=== PATIENT | male | born 1960 | race Caucasian/White ===

== ENCOUNTER → 2017-08-01 14:03 | Outpatient (CLI) | payer BC, SELFPAY ==
--- NOTE | 2017-08-01 14:08 | XR_ITS ---
XR chest 2V HISTORY: ITS.REASON: HTN ORDERING PHYSICIAN: LOPEZ Aguilar PATIENT AGE: 56 years COMPARISON: 11/22/2015 FINDINGS: The cardiomediastinal silhouette and pulmonary vascularity are within normal limits. The lungs are clear without infiltrates, suspicious nodules, or pleural effusions. No acute bony abnormalities. IMPRESSION: Negative chest, no acute finding
== END ==
PROVIDERS: PCP Family Medicine; Visit Provider Physician Assistant
DX: I10 Essential (primary) hypertension (principal)
CPT/HCPCS: 71046; 93005

== ENCOUNTER → 2017-10-24 09:04 | Outpatient (CLI) | payer BC, SELFPAY ==
--- NOTE | 2017-10-24 09:31 | MR_ITS ---
MR head/brain wo/w con Ordering Physician: Arlet Purcell MD Patient Age: 56 years: Male HISTORY: ITS.REASON: DIPLOPIA Diplopia. Double vision 5 months. No history of brain procedures. TECHNIQUE: Precontrast Multiplanar FLAIR, T1, T2 weighted images along with axial diffusion/ADC imaging performed on 1.5 T. Siemens, MRI. Postcontrast imaging [id number] ProHance T1-weighted images axial & coronal plane performed COMPARISON : FINDINGS Normal anatomy.No mass effect No territorial infarct. No evidence of recent infarct or ischemia on diffusion images.. Cranial cervical junction is normal. Sella is normal. Ventricles appear normal size. Slightly generous perivascular space/CSF space at the floor of right basal ganglia. Other tiny perivascular spaces at inferior basal ganglia bilaterally insignificant. 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 No enhancement here. This measures up to 10 mm AP x 11 mm wide. 8 mm height. 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 Posterior fossa unremarkable. IACs symmetric cranial nerve VII and VIII survey unremarkable . Region of igiugig Blackmon grossly unremarkable on this survey study. No suprasellar mass region of optic chiasm satisfactory The today's survey images of the orbits shows symmetrical appearance to the globes. No retrobulbar pathology. The extraocular muscles appear normal size.. Paranasal Sinus Disease Evident: A prominent diffuse mucosal thickening throughout Ethmoid Air bilaterally cells reflecting ethmoid sinusitis. Diffuse homogeneous moderate Enhancement with mucosal thickening at ethmoid air cells. LEFT maxillary sinus with generous mucosal thickening at floor measuring over 15 mm.. 2 focal areas measuring up to 14 mm is seen along the medial wall towards floor. Slight varying signal of these ovoid polypoid areas.... May reflect focal polypoid qMucosal thickening with some low signal inspissated material centrally, vs some variations of a retention cyst.. No significant enhancement post contrast Mild mucosal thickening is seen throughout the RIGHT maxillary sinus. Most evident towards the floor. . Sphenoid sinus. Trace mucosal thickening floor of sphenoid sinus most evident to the right. Frontal sinus. Trace mucosal thickening inferiorly Engorgement nasal turbinates bilaterally right greater than left with slight undulation of the nasal septum IMPRESSION:--------- 1.. Regarding visual symptoms: Orbits, suprasellar region & optic pathways unremarkable. Occipital lobes unremarkable 2.. Notable Paranasal sinus disease: -... Prominent bilateral Ethmoid Sinusitis is most pronounced feature - . Moderate mucosal thickening floor left maxillary sinus,. Two ovoid polypoid areas at medial wall & floor of left maxillary sinus- likely reflecting polypoid areas mucosal thickening or retention cyst variants 3.. Small incidental 11 mm slight eccentric pineal cyst is noted just to left of midline . No enhancement but may benefit from follow-up CT in 6 months given its eccentric character & upper normal size 4. Suggest Follow-Up CT Sinuses in 2-3 months after initial treatment of sinusitis Head CT w/ contrast at that time verify stable appearance of asymmetric pineal cyst may be of benefit as well
[2017-10-24 09:34] LABS: Blood Urea Nitrogen 16 mg/dL (7-18); Creatinine,Serum 1.23 mg/dL (0.70-1.30); Estimated Glomerular Filt Rate 61 ml/min (>60); GFR (African American) 74 ML/MIN (>60)
--- NOTE | 2017-10-24 10:14 | HMH.ITSHM ---
AMLODIPINE OMEPRAZOLE LEUSIN
== END ==
PROVIDERS: Family Provider Family Medicine; PCP Family Medicine; Visit Provider Family Medicine
DX: H53.2 Diplopia (principal)
CPT/HCPCS: 36415; 70553; 82565; 84520; A9576

== ENCOUNTER → 2017-11-14 14:20 | Outpatient (POV) | payer BC, SELFPAY | PROVIDERS: Family Provider Family Medicine; PCP Family Medicine | DX: Z00.00 Encounter for general adult medical examination without abnormal findings (principal) ==

== ENCOUNTER → 2018-07-24 11:41 | Outpatient (CLI) | payer BC, SELFPAY ==
--- NOTE | 2018-07-24 11:50 | XR_ITS ---
EXAM: XR lumbar spine min 4V HISTORY: ITS.REASON: PIRIFORMIS SYNDROME OF RT SIDE ORDERING PHYSICIAN: LOPEZ Aguilar PATIENT AGE: 57 years COMPARISON: None FINDINGS: There are hypertrophic changes along the superior aspect of the SI joint on the left. There is mild adjacent disc disease at L3-L4 L4-L5 and L5-S1. Mild degenerative disc disease also noted at T12-L1 and L1-L2. No fracture or dislocation. No lytic or blastic change. IMPRESSION: Degenerative changes, no acute finding
== END ==
PROVIDERS: PCP Physician Assistant; Visit Provider Physician Assistant
DX: G57.01 Lesion of sciatic nerve, right lower limb (principal)
CPT/HCPCS: 72110

== ENCOUNTER → 2018-07-30 07:41 | Outpatient (CLI) | payer BC, SELFPAY ==
--- NOTE | 2018-07-30 07:47 | MR_ITS ---
MR lumbar spine wo con, MR 3-d myelogram/MRCP HISTORY: RT hip and leg pain and tingling. X2WKS. . ITS.REASON: PIRIFORMIS SYNDROME OF RIGHT SIDE ORDERING PHYSICIAN: LOPEZ Aguilar PATIENT AGE: 57 years Comparison: X-RAY 07-24-18. TECHNIQUE: Standard multiplanar multiecho sequences are performed without contrast. 3-D MIP and myelographic images are also rendered and reviewed FINDINGS: There is normal alignment. The spinal cord ends at the T12-L1 level. T11-T12 and T12-L1 shows mild degenerative disc disease. L1-L2: Minimal degenerative disc disease. L2-L3: Unremarkable. L3-L4: Minimal bulging disc L4-L5: Facet and ligamentum flavum hypertrophy with minimal bulging disc and mild bilateral foraminal narrowing slightly greater on the left. L5-S1: There appears to been a prior laminectomy on the right at L5-S1. There is a lobular slightly hypointense T1 and T2 abnormality in the right lateral recess measuring 9 x 9 mm. This may represent a recurrent disc herniation or an area of epidural fibrosis. Repeat exam with contrast is suggested. This is impinging upon the right S1 nerve root. There is degenerative disc disease at L5-S1 with slight increase in T2 signal of the disc. IMPRESSION: 1. 9 mm hypointense T1 and T2 lobular lesion is present in the right lateral recess at L5-S1 contiguous with the disc and may represent a disc herniation versus an area of epidural fibrosis. Suggest repeat MRI with contrast to differentiate between the 2 entities. 2. Degenerative disc disease at L5-S1 3. Lumbar spondylosis with degenerative disc disease bulging disc and facet ligamentum flavum hypertrophy. Please above description at each level.
== END ==
PROVIDERS: PCP Physician Assistant; Visit Provider Physician Assistant
DX: G57.01 Lesion of sciatic nerve, right lower limb (principal)
CPT/HCPCS: 72148; 76376

== ENCOUNTER → 2018-08-07 11:45 | Outpatient (CLI) | payer BC, SELFPAY ==
--- NOTE | 2018-08-07 11:59 | MR_ITS ---
MR lumbar spine wo/w con HISTORY: Abnormal MRI of 07/30/2018 showing a disc herniation versus epidural fibrosis on the right at L5-S1. Repeat imaging performed without and with contrast LBP, RT leg pain, numbness and tingling. Prior back surgery in 1989. ITS.REASON: PIRIFORMIS SYNDROME OF RIGHT SIDE, ABNORMAL MRI, LUMBAR SPIN ORDERING PHYSICIAN: LOPEZ Aguilar PATIENT AGE: 57 years Comparison: None TECHNIQUE: Standard multiplanar multiecho sequences are performed without and with contrast. FINDINGS: Is normal alignment. There is been no change in the degenerative changes which were previously described in the lower thoracic and upper lumbar spine. No enhancing lesions are evident in the lower thoracic and upper and mid lumbar spine. Mild bulging disc noted at L3-L4 and L4-L5 with facet and ligamentum hypertrophy at L4-5 along with bilateral lateral recess and foraminal narrowing. L5-S1: Postsurgical changes from prior laminectomy on the right with degenerative disc disease and bulging disc which is eccentric toward the right. The area of hypointensity in the right lateral recess region and foraminal area does show some contrast enhancement around a mildly prominent S1 nerve root and is consistent with epidural fibrosis and not a disc herniation. IMPRESSION: 1. Right-sided epidural fibrosis at L5-S1 surrounding a mildly prominent S1 nerve root could be due to underlying inflammation of the nerve root.. There is some right lateral recess and foraminal narrowing from bulging disc and minimal endplate hypertrophic change but no evidence of residual or recurrent disc herniation. 2. Other areas of degenerative change and bulging discs as previously described IMPRESSION:
[2018-08-07 12:09] LABS: Blood Urea Nitrogen 19 mg/dL (7-18); Creatinine,Serum 1.06 mg/dL (0.70-1.30); Estimated Glomerular Filt Rate 72 ml/min (>60); GFR (African American) 87 ML/MIN (>60)
== END ==
PROVIDERS: Visit Provider Physician Assistant
DX: G57.01 Lesion of sciatic nerve, right lower limb (principal); R93.7 Abnormal findings on diagnostic imaging of other parts of musculoskeletal system
CPT/HCPCS: 36415; 72158; 82565; 84520; A9576

== ENCOUNTER → 2019-10-23 09:51 | Outpatient (CLI) | payer BC, SELFPAY ==
--- NOTE | 2019-10-23 09:58 | XR_ITS ---
PROCEDURE: XR FOOT WT BEARING RT 3V CLINICAL INDICATION: pain COMPARISON: No exams were available for comparison FINDINGS: No fracture or dislocation. No lytic or blastic change. There is normal mineralization. The joint spaces are well-preserved. No significant degenerative/arthritic changes. No erosive changes evident. Other findings:There is a bipartite type 1 os navicularis. There is a prominent os trigonum. Small calcaneal spur is noted.. Flexion is present involving all the toes. IMPRESSION: Nonacute findings as described Dictated by: Dae Hidalgo MD 10/23/2019 16:23 Dae Hidalgo MD in [place] 10/23/2019 16:23
--- NOTE | 2019-10-23 09:58 | XR_ITS ---
PROCEDURE: XR FOOT WT BEARING LT 3V CLINICAL INDICATION: pain COMPARISON: No exams were available for comparison FINDINGS: There is an old ununited fracture at the base of the 5th metatarsal with separation of the fracture fragments 4-5 mm. No acute fracture or dislocation is evident. There is mild pes planus. The joint spaces are well-preserved. No significant degenerative/arthritic changes. No erosive changes evident. Other findings:There is a mildly prominent posterior talar process as a normal variant. IMPRESSION: Old ununited fracture at the base of the 5th metatarsal with mild separation of the fracture fragments. Mild pes planus Dictated by: Dae Hidalgo MD 10/23/2019 14:52 Dae Hidalgo MD in [place] 10/23/2019 14:52
== END ==
PROVIDERS: PCP Family Medicine; Visit Provider Podiatrist
DX: M79.673 Pain in unspecified foot (principal)
CPT/HCPCS: 73630

== ENCOUNTER → 2020-02-14 10:33 | Outpatient (CLI) | payer BC, SELFPAY ==
[2020-02-14 11:57] LABS: Basophils # 0.1 K/mm3 (0-0.2); Basophils % 1.1 % (0.1-2.0); Eosinophils # 0.1 K/mm3 (0.0-0.4); Eosinophils % 1.8 % (0.1-12.0); Hematocrit 40.4 % (42.0-52.0); Hemoglobin 13.9 g/dL (14.1-18.0); Lymphocytes # 1.1 K/mm3 (0.7-4.5); Lymphocytes % 18.1 % (10-50); Mean Corpuscular HGB Conc 34.4 g/dL (31.8-35.4); Mean Corpuscular Hemoglobin 30.5 pg (27.0-31.2); Mean Corpuscular Volume 88.7 fl (80-94); Mean Platelet Volume 11.2 fl (7.4-10.4); Monocytes # 0.5 K/mm3 (0.1-1.0); Monocytes % 7.4 % (1.7-9.3); Neutrophils # 4.4 K/mm3 (1.8-7.8); Neutrophils % 71.7 % (37.0-80.0); Platelet Count 109 K/mm3 (142-424); Red Blood Count 4.56 M/mm3 (4.60-6.20); Red Cell Distribution Width 13.9 % (11.5-17.5); White Blood Count 6.1 K/mm3 (4.8-10.8)
[2020-02-15 09:08] LABS: Covid-19 Nasal PCR Sendout UK Not Detected
== END ==
PROVIDERS: PCP Family Medicine; Visit Provider Family Medicine
DX: Z03.818 Encounter for observation for suspected exposure to other biological agents ruled out (principal)
CPT/HCPCS: 36415; 85025; U0003

== ENCOUNTER → 2020-04-13 10:24 | Outpatient (CLI) | payer BC, SELFPAY ==
[2020-04-13 10:52] LABS: Basophils % 0.5 % (0.1-2.0); Eosinophils # 0.1 K/mm3 (0.0-0.4); Eosinophils % 1.3 % (0.1-12.0); Hematocrit 43.5 % (42.0-52.0); Lymphocytes # 1.4 K/mm3 (0.7-4.5); Lymphocytes % 18.8 % (10-50); Mean Corpuscular HGB Conc 32.1 g/dL (31.8-35.4); Mean Corpuscular Hemoglobin 28.1 pg (27.0-31.2); Mean Corpuscular Volume 87.6 fl (80-94); Mean Platelet Volume 9.9 fl (7.4-10.4); Monocytes # 0.5 K/mm3 (0.1-1.0); Monocytes % 6.6 % (1.7-9.3); Neutrophils # 5.6 K/mm3 (1.8-7.8); Neutrophils % 72.9 % (37.0-80.0); Platelet Count 191 K/mm3 (142-424); Red Blood Count 4.97 M/mm3 (4.60-6.20); White Blood Count 7.6 K/mm3 (4.8-10.8)
== END ==
PROVIDERS: PCP Family Medicine; Visit Provider Family Medicine
DX: Z20.822 Contact with and (suspected) exposure to COVID-19 (principal)
CPT/HCPCS: 36415; 85025; 87275; 87276; U0003

== ENCOUNTER → 2020-07-06 13:29 | Outpatient (CLI) | payer BC, SELFPAY ==
--- NOTE | 2020-07-06 13:33 | XR_ITS ---
PROCEDURE: XR CHEST 2V CLINICAL HISTORY: SOB COMPARISON: CR CXR CHEST(2 VIEWS-NOT PORTABLE) from 05/23/2013 CR CXR CHEST(2 VIEWS-NOT PORTABLE) from 11/22/2015 DX CXR2V XR chest 2V from 08/01/2017 FINDINGS: The cardiomediastinal silhouette and pulmonary vascularity are within normal limits. The lungs are clear without infiltrates, suspicious nodules, or pleural effusions. No acute bony abnormalities. IMPRESSION: No acute findings. Dictated by: Dae Hidalgo MD 07/06/2020 14:43 Dae Hidalgo MD in [place] 07/06/2020 14:43
== END ==
PROVIDERS: PCP Family Medicine; Visit Provider Family Medicine
DX: R06.02 Shortness of breath (principal)
CPT/HCPCS: 71046

== ENCOUNTER → 2020-07-15 06:14 | Outpatient (CLI) | payer BC, SELFPAY ==
--- NOTE | 2020-07-15 | CA_ITS ---
APPROVED REPORT Exam: Pharmacologic Technologist: Salome David, Ht: 6 ft 5 in Wt: 370 lbs BSA: 2.90 m2 HR: 55 bpm BP: 148/60 mmHg Rhythm: sinus michelle, otherwise normal Medical History Medical History: HTN, Hyperlipidemia Medications: Amlodipine,,,,, Omeprazole,,,,, AtorvaASTATIN,,,,, Stress Test Details Test: LEXISCAN HR Resting HR: 69 bpm Max Heart Rate (APMHR): 161.055328 bpm Max HR Achieved: 102 bpm Target HR (85% APMHR): 136.713251 bpm % of APMHR: 63.35 Recovery HR: 72 bpm BP Resting BP: 148/60 mmHg Max BP: 154/65 mmHg Recovery BP: 139.0/66.0 mmHg ECG Resting ECG: Sinus michelle, otherwise normal Clinical Exercise duration: 04:06 min Highest Stage Achieved: Exercise capacity: 1.0 METs Stress ECG Conclusion During Lexiscan pt experinced SOA, mild malaise, no chest pain. No arrhythmias or ectopy. No significant ST changes. Unremarkable Lexiscan stress, myoview images reported separately. Test Summary REST . . . . . . . Sitting REST 05:32 . . 69 . 148/ 60 . . Stage 1 01:00 . . 98 . . . . Stage 2 01:00 . . 90 . 154/ 65 . . Stage 3 01:00 . . 77 . . . . Stage 4 01:00 . . 75 . 152/ 65 . . Stage 4 01:06 . . 75 . 121/ 64 . Stop exercise at 04:06 RECOVERY 01:00 . . 89 . . . . RECOVERY 02:00 . . 70 . . . . RECOVERY 03:00 . . 74 . 139/ 66 . . RECOVERY 03:42 . . 85 . 140/ 65 . . Electronically signed by : Cesar Le, 07/15/2020 14:32:12
--- NOTE | 2020-07-15 06:19 | NM_ITS ---
APPROVED REPORT Exam: Nuclear Stress Test Indication: short of breath..fatigue Patient Location: Outpatient Stress Tech: Salome ENGEL Tech:Perla MarieDARYL RT(R)(N) Ht: 6 ft 5 in Wt: 370 lbs HR: 55 bpm BP: 148/60 mmHg BSA: 2.90 m2 BMI: 43.8 History: short of breath..fatigue Procedure: Patient received a 0.4 mg of intravenous Lexiscan, resting heart rate 55 bpm, resting blood pressure 148/60 mmHg, with Lexiscan maximum heart rate achived was 87 bpm which is Less than 85 % of the maximum predicted heart rate and blood pressure was 154/65 mmHg. With Lexiscan, patient denied any complaint of chest pain. Electrocardiogram Resting electrocardiogram shows sinus rhythm, with Lexiscan there is less than 1.[address] segment depression noted from the baseline EKG. The EKG portion of the Lexiscan is nondiagnostic. Cardiac Stress and Resting SPECT Images: Cardiac Stress and Resting SPECT images were obtained using technetium 99m Myoview 30.8 mCi stress and 10.13 mCi at rest. Gated SPECT for analysis of segmental wall motion and calculation of the ejection fraction also done. Prone images were also obtained. Cardiac stress and resting SPECT images show partial reversible defect involving the inferior and posterior basal wall consistent with area of mixed ischemia and scar, computer derived ejection fraction is 47% with moderate inferior and posterior basal wall hypokinesis. Right ventricle is normal size and contractility. Conclusion: 1. The EKG portion of the Lexiscan is nondiagnostic. 2. Scintigraphic evidence of mixed ischemia and scar involving the inferior and posterior basal wall, computer derived ejection fraction is 47% with segmental wall motion abnormality described above, right ventricle is normal size and contractility 3. Abnormal Lexiscan Myoview study. Electronically signed by : Cesar Le, 07/15/2020 14:35:38
--- NOTE | 2020-07-15 07:43 | CA_ITS ---
APPROVED REPORT EXAM: Comprehensive 2D, Doppler, and color-flow Echocardiogram Density Control Puncher: Courtney Zhang CRT Ht: 6 ft 5 in Wt: 370lbs BSA: 2.90 BP: 135/63 mmHg Indications: Shortness of Breath, Obesity 2D Dimensions LVOT 2.08 cm (M/F) 1.5-2.5 M-Mode Dimensions RVDd 2.93 cm (0.9-2.6) LA Diam 4.35 cm (1.9-4.0) LVDd 5.66 cm (3.5-5.7) Ao Diam 3.89 cm (2.0-3.7) LVDs 3.60 cm (3.5-5.7) IVSd 1.94 cm (0.6-1.1) PWd 1.29 cm (0.6-1.1) EF (Teich) 65.30% FS 36.30% EDV (Teich) 156.80 mL TAPSE 2.27 (<1.7) ESV (Teich) 54.40 mL LV Diastology E Decel Time 167.00 (160-240 msec) E/A Ratio 0.93 MED E' 11.30 (< 7 cm/sec) MED A' 8.00 cm/s E'/MED E' Ratio 6.55 (>14) LAT E' 8.60 (<10 cm/sec) LAT A' 9.80 cm/s E/LAT E' Ratio 8.60 (>14) Aortic Valve AO Peak GR. 4.90 mmHg Mitral Valve MV A Velocity 79.00 (40-130 cm/s) E/A Ratio 0.93 MV Decel. Time 167.00 (160-240 ms) Pulmonary Valve PV Peak Velocity 73.00 (50-150 cm/s) Tricuspid Valve TR P. Velocity 261.00 cm/s RAP Estimate 10.00 mmHg RVSP 37.20 mmHg Left Ventricle Left atrium is mildly enlarged, left ventricle is normal size, mild concentric left ventricular hypertrophy, visually estimated ejection fraction 55% with no regional wall motion abnormality, grade 1 diastolic dysfunction seen without tissue Doppler evidence of raise left atrial pressure. Right Ventricle Right atrium and right ventricle mildly enlarged with normal contractility. Aortic Valve Aortic valve is minimally thickened and fibrosed, there is no aortic stenosis or aortic insufficiency. Mitral Valve Mitral valve grossly normal, there is trace mitral regurgitation. Tricuspid Valve Tricuspid grossly normal, there is trace tricuspid regurgitation. Tricuspid regurgitation jet velocity is inadequate for calculation of the right ventricular systolic pressure. Pulmonic Valve Pulmonic valve is poorly visualized. Great Vessels Aortic root is normal size. Pericardium No significant pericardial effusion noted. Conclusion 1. Mild biatrial enlargement, normal left ventricular size, mild concentric left ventricular hypertrophy, visually estimated ejection fraction 55% with no regional wall motion abnormality, grade 1 diastolic dysfunction seen without tissue Doppler evidence of raise left atrial pressure. 2. Mildly enlarged right ventricle with normal contractility. 3. Trace mitral and tricuspid regurgitation. 4. No significant pericardial effusion noted. Electronically signed by : Cesar Le, 07/15/2020 15:14:56
== END ==
LOC: RAD 06:14
PROVIDERS: PCP Family Medicine; Visit Provider Family Medicine
DX: R94.30 Abnormal result of cardiovascular function study, unspecified (principal)
CPT/HCPCS: 78452; 93017; 93306; A9502; J2785

== ENCOUNTER → 2020-07-26 10:07 | Outpatient (CLI) | payer BC, SELFPAY ==
[2020-07-26 10:58] LABS: Basophils % 0.5 % (0.1-2.0); Eosinophils # 0.1 K/mm3 (0.0-0.4); Eosinophils % 1.5 % (0.1-12.0); Hematocrit 42.4 % (42.0-52.0); Hemoglobin 14.1 g/dL (14.1-18.0); Lymphocytes # 1.3 K/mm3 (0.7-4.5); Lymphocytes % 17.4 % (10-50); Mean Corpuscular HGB Conc 33.3 g/dL (31.8-35.4); Mean Corpuscular Hemoglobin 28.5 pg (27.0-31.2); Mean Corpuscular Volume 85.5 fl (80-94); Mean Platelet Volume 10.2 fl (7.4-10.4); Monocytes # 0.6 K/mm3 (0.1-1.0); Monocytes % 7.2 % (1.7-9.3); Neutrophils # 5.6 K/mm3 (1.8-7.8); Neutrophils % 73.4 % (37.0-80.0); Platelet Count 188 K/mm3 (142-424); Red Blood Count 4.95 M/mm3 (4.60-6.20); Red Cell Distribution Width 13.7 % (11.5-17.5); White Blood Count 7.7 K/mm3 (4.8-10.8)
[2020-07-26 11:10] LABS: Anion Gap 7.8 mEq/L (5-15); Blood Urea Nitrogen 24 mg/dl (9-20); Calcium 9.1 mg/dl (8.4-10.2); Carbon Dioxide 32 mmol/L (22.0-30.0); Chloride 102 mmol/L (98-107); Estimated Glomerular Filt Rate 62 ml/min (>60); GFR (African American) 75 ML/MIN (>60); Glucose 112 mg/dl (74-100); Potassium 4.8 mmoL/L (3.5-5.1); Sodium 137 mmol/L (136-145)
== END ==
PROVIDERS: Visit Provider Urology
DX: R07.9 Chest pain, unspecified (principal); R94.30 Abnormal result of cardiovascular function study, unspecified; I10 Essential (primary) hypertension; E78.5 Hyperlipidemia, unspecified; K21.9 Gastro-esophageal reflux disease without esophagitis
CPT/HCPCS: 36415; 80048; 85025; U0003

== ENCOUNTER 2020-07-27 08:59 | Day surgery (SDC) | payer BC, SELFPAY ==
[2020-07-27] VITALS (13 sets, daily range): BP systolic 95–140; BP diastolic 41–88; PULSE 61–82; RESP 13–20; TEMP 36.6; O2SAT 92–98; BMI 46.3
--- NOTE | 2020-07-27 07:07 | IR_ITS ---
APPROVED REPORT Patient Location: Outpatient PROCEDURES Left heart catheterization Left ventriculogram Selective coronary angiogram INDICATION High risk abnormal Myoview, Angina pectoris Informed consent was obtained prior to the procedure. COMPLICATIONS NONE Estimated Blood Loss: LESS THAN 10 ML TECHNIQUE One percent lidocaine used to anesthetize the right anterior aspect of the wrist. The right radial artery was accessed via the Seldinger technique. A 6 Icelandic sheath was placed in the right radial artery. 2.5 mg of verapamil, 800 mcg of nitroglycerin, 1mg Lidocaine and 5000 U Heparin were given through the arterial sheath. The Poppa 1 catheter was also used to perform left heart catheterization, left ventriculogram and selective coronary angiogram. At the end of the procedure the sheath was removed good hemostasis was achieved using Traclet band, patient was transferred to the postop holding area in stable condition. ANGIOGRAPHIC RESULTS The left main artery Normal The left anterior descending artery Normal The circumflex artery Codominant normal The right coronary artery Codominant normal The SEO ventriculogram reveals Normal 60% The left ventricular end-diastolic pressure 10 mmHg IMPRESSION Normal coronary arteries Normal ejection fraction Normal left ventricular and SI pressure Extremely horizontal heart which accounts for the abnormal stress test PLAN 1. Continue medical management and evaluation of noncardiac chest pain Electronically signed by : Darwin Carlton, 07/27/2020 10:02:19
== END 2020-07-27 12:54 | disposition home or self-care (01) ==
PROVIDERS: PCP Family Medicine; Visit Provider Internal Medicine
DX: R07.89 Other chest pain (principal); E78.2 Mixed hyperlipidemia; I10 Essential (primary) hypertension; K21.9 Gastro-esophageal reflux disease without esophagitis; E78.5 Hyperlipidemia, unspecified
CPT/HCPCS: 93458; 99152; C1725; C1760; C1769; J1644; Q9967

== ENCOUNTER → 2020-08-31 07:32 | Outpatient (CLI) | payer BC, SELFPAY ==
--- NOTE | 2020-08-31 07:34 | MR_ITS ---
PROCEDURE: MR KNEE LT WO CON CLINICAL INDICATION: LEFT KNEE PAIN Lt medial knee pain. Popping and swelling in knee. Symptoms [id number]. COMPARISON: CR [id number] KNEE-LIMITED 2 VIEWS-LT from 05/05/2013 TECHNIQUE: Routine multiplanar multi echo sequences are performed without gadolinium enhancement. FINDINGS: The posterior cruciate ligament is intact. The fibers of the ACL are somewhat ill-defined in its mid aspect suggesting a chronic partial tear or sprain. The collateral ligaments appear intact. The patellar tendon and quadriceps tendon have an unremarkable appearance. There is thinning of the patellar cartilage. Horizontal tear involves the posterior horn of the medial meniscus. The lateral meniscus appears intact. Moderate to severe osteoarthritic changes are present involving all 3 compartments. This is greatest at the medial compartment and patellofemoral joint. The menisci are slightly extruded peripherally. There is increased T2 signal involving the proximal and medial aspect of the tibia consistent with some underlying bone marrow edema. No acute fractures evident. There is a small knee joint effusion. Osteophytes are present at the intercondylar region of the femur and tibial spines. Numerous varicosities are present within the subcutaneous tissues about the knee. IMPRESSION: 1. Moderate to severe osteoarthritic changes with small knee joint effusion. 2. Nondisplaced horizontal tear involves the posterior horn of the medial meniscus 3. Prominent varicosities within the subcutaneous tissues about the knee. 4. Questionable partial tear versus sprain of the ACL Dictated by: Dae Hidalgo MD 09/01/2020 08:16 Dae Hidalgo MD in [place] 09/01/2020 08:16
== END ==
PROVIDERS: PCP Family Medicine; Visit Provider Orthopaedic Surgery
DX: M25.562 Pain in left knee (principal)
CPT/HCPCS: 73721

== ENCOUNTER → 2020-09-17 20:14 | Outpatient (CLI) | payer BC, SELFPAY | PROVIDERS: PCP Family Medicine; Visit Provider Family Medicine | DX: G47.33 Obstructive sleep apnea (adult) (pediatric) (principal); R06.83 Snoring; I10 Essential (primary) hypertension | CPT/HCPCS: G0399 ==

== ENCOUNTER → 2020-10-08 14:20 | Outpatient (CLI) | payer BC, SELFPAY ==
--- NOTE | 2020-10-08 | CA_ITS ---
APPROVED REPORT Bilateral Lower Extremity Venous Study for Medical Voucher Clerk: LITO Indications Lower Extremity Pain: Lower Extremity Swelling: Left Left lower extremity pain, swelling and bruising Risk Factors Post OP Post op full knee replacement September 30, 2020. Calf pain and swelling started two days ago. Vein Imaging CFV (L): compressive, spontaneous, phasic, augmentation FEM (L): compressive, spontaneous, phasic, augmentation POP (L): Absent Flow, Non-Compressible PTV (L): Non-Compressible GSV (L): compressive, spontaneous, phasic, augmentation Peroneals (L):Not Visualized GAS (L): compressive, spontaneous, phasic, augmentation Findings Study demonstrates DVT in the left lower extremity including the popliteal vein and posterior tibial veins. Study demonstrates varicosities in the left medial thigh and left medial calf. All other veins of the left lower extremity were normal. Conclusion Study demonstrates DVT in the left lower extremity including the popliteal vein and posterior tibial veins. Study demonstrates varicosities in the left medial thigh and left medial calf. All other veins of the left lower extremity were normal. Critical Notification Critical Value: Yes Physician Notified Date: 10/08/2020 Time: 15:37 Physician Name: Dr. Ortiz Electronically signed by : Dae Hidalgo MD 10/08/2020 15:54:58
== END ==
PROVIDERS: PCP Family Medicine; Visit Provider Orthopaedic Surgery
DX: M79.662 Pain in left lower leg (principal); M79.89 Other specified soft tissue disorders
CPT/HCPCS: 93971

== ENCOUNTER → 2020-12-23 15:31 | Outpatient (CLI) | payer BC, SELFPAY | PROVIDERS: PCP Family Medicine; Visit Provider Nurse Practitioner | DX: Z20.822 Contact with and (suspected) exposure to COVID-19 (principal); U07.1 COVID-19 | CPT/HCPCS: C9803; U0003; U0005 ==

== ENCOUNTER 2020-12-26 09:56 | Outpatient (CLI) | payer BC, SELFPAY ==
[2020-12-26] VITALS (9 sets, daily range): BP systolic 102–130; BP diastolic 55–76; PULSE 50–69; RESP 18; TEMP 36.8; O2SAT 93–98
== END 2020-12-26 12:48 | disposition home or self-care (01) ==
LOC: INF 09:57
PROVIDERS: PCP Family Medicine; Visit Provider Family Medicine
DX: U07.1 COVID-19 (principal); Z23 Encounter for immunization
CPT/HCPCS: 96365

== ENCOUNTER → 2021-04-29 09:21 | Outpatient (CLI) | payer BC, SELFPAY ==
--- NOTE | 2021-04-29 | CA_ITS ---
FINAL REPORT TECHNIQUE: Left lower extremity venous duplex was performed with augmentation and compression. CLINICAL HISTORY: Patient had a left knee replacement 09/2020. He had a positive venous doppler 10/08/20 with DVT in POPV and PTV. Patient is currently taking Xarelto daily. Todays study is a followup to the DVT to discontinue blood thinner. Morbid obesity. FINDINGS: Proper flow is seen throughout the deep venous system. There is no evidence of deep venous thrombosis. IMPRESSION: No evidence of acute or chronic deep venous thrombosis. Reviewed, Interpreted and Dictated by Mau Ibarra MD Transcribed by Isa Carcamo Authenticated by Mau Ibarra MD on 04/29/2021 11:23:56 AM [facility]
== END ==
LOC: RT 09:24
PROVIDERS: PCP Family Medicine; Visit Provider Physician Assistant
DX: I82.432 Acute embolism and thrombosis of left popliteal vein (principal)
CPT/HCPCS: 93971

== ENCOUNTER 2021-05-04 10:00 | Outpatient (RCR) | payer BC, SELFPAY | END 2021-05-04 10:05 | disposition home or self-care (01) | LOC: PT 10:00 | PROVIDERS: PCP Family Medicine; Visit Provider Orthopaedic Surgery | DX: M25.562 Pain in left knee (principal); Z96.652 Presence of left artificial knee joint | CPT/HCPCS: 97010; 97014; 97016; 97110; 97140; 97163; 97164; 97530; 97760; G0283 ==

== ENCOUNTER 2021-10-18 11:00 | Outpatient (RCR) | payer BC, SELFPAY | END 2021-10-18 12:00 | disposition home or self-care (01) | LOC: PT 11:00 | PROVIDERS: PCP Family Medicine; Visit Provider Orthopaedic Surgery | DX: M25.562 Pain in left knee (principal); Z96.652 Presence of left artificial knee joint | CPT/HCPCS: 97010; 97014; 97016; 97110; 97112; 97140; 97163; 97164; G0283 ==

== ENCOUNTER → 2023-02-16 06:20 | Outpatient (CLI) | payer OTHER, SELFPAY ==
--- NOTE | 2023-02-16 06:29 | CT_ITS ---
FINAL REPORT TECHNIQUE: Axial images through the abdomen and pelvis were performed without contrast.This study was performed with techniques to keep radiation doses as low as reasonably achievable, (ALARA). Individualized dose reduction techniques using automated exposure control or adjustment of mA and/or kV according to the patient's size were employed. CLINICAL HISTORY: HEMATURIA COMPARISON: 09/02/2017 FINDINGS: ABDOMEN: The lung bases are clear. The heart size is normal. There is diffuse fatty infiltration of the liver. Liver measures up to 22 cm. The spleen is normal. No adrenal mass is identified. The aorta is normal in caliber. There is no significant free fluid or adenopathy. There is a 5 mm, nonobstructing stone in the lower pole of the left kidney. Bilateral parapelvic renal cysts are seen, unchanged from prior exam. There is no hydronephrosis. PELVIS: The appendix is not identified. The urinary bladder is unremarkable. There is no significant free fluid or adenopathy. IMPRESSION: Nonobstructing left renal stone. Hepatomegaly with fatty infiltration. Reviewed, Interpreted and Dictated by Mau Ibarra MD Transcribed by Karen Schultz Authenticated and [facility]
== END ==
LOC: RAD 06:21
PROVIDERS: PCP Family Medicine; Visit Provider Family Medicine
DX: N39.0 Urinary tract infection, site not specified (principal); R31.29 Other microscopic hematuria
CPT/HCPCS: 74176

== ENCOUNTER 2023-03-27 16:30 | Outpatient (RCR) | payer OTHER, SELFPAY | END 2023-03-27 17:30 | disposition home or self-care (01) | LOC: PT 16:30 | PROVIDERS: PCP Family Medicine; Visit Provider Physician Assistant | DX: M25.462 Effusion, left knee; S82.092S Other fracture of left patella, sequela; M17.12 Unilateral primary osteoarthritis, left knee | CPT/HCPCS: 97110; 97163; 97530 ==

== ENCOUNTER 2023-12-07 07:42 | Outpatient (CLI) | payer MEDICARE, SELFPAY ==
--- NOTE | 2023-12-07 07:48 | CA_ITS ---
APPROVED REPORT EXAM: Comprehensive 2D, Doppler, and color-flow Echocardiogram Director Of Materials Management: Liberty Liu RVT Ht: 6 ft 5 in Wt: 384lbs BSA: 2.95 BP: 145/67 mmHg Indications: SOA,EDEMA,HTN,HLD Echo Enhancing Agent Indication: Rule out Shunt Agent(s) / Amount(s) Used: Agitated Saline 10 cc M-Mode Dimensions RVDd 2.64 cm (0.9-2.6) LA Diam 3.53 cm (1.9-4.0) LVDd 3.52 cm (3.5-5.7) LVDs 2.30 cm (3.5-5.7) IVSd 1.66 cm (0.6-1.1) PWd 1.08 cm (0.6-1.1) EF (Teich) 64.90% FS 34.70% EDV (Teich) 51.60 mL ESV (Teich) 18.10 mL LV Diastology E Decel Time 150 (160-240 msec) E/A Ratio 0.5 Aortic Valve MATIAS Index 2.17 cm2/m2 AoV Peak Lance. 68.0 (50-130 cm/s) AO Peak GR. 1.90 mmHg AO Mean GR. 1.10 (<5 mmHg) AO VTI 11.8 (18-25 cm) MATIAS (VTI) 6.55 (2.5-4.5 cm2) Mitral Valve MV E Max Lance. 37.0 (40-130 cm/s) MV A Velocity 74.0 (40-130 cm/s) E/A Ratio 0.50 MV PHT 44.0 ms Pulmonary Valve PV Peak Velocity 72.0 (50-150 cm/s) Left Ventricle The left ventricle is normal size. The left ventricular systolic function is normal. The left ventricular ejection fraction is within the normal range. There is increased LV wall thickness. There is normal LV segmental wall motion. Diastolic function is indeterminate. LVEF is 55%. Right Ventricle The right ventricle is is not well-visualized, but grossly appears mildly to moderately dilated. Right ventricle is mildly hypokinetic. Atria The left atrium size is normal. The right atrium size is normal. There is no Doppler evidence of interatrial shunt. Agitated saline administration demonstrates no evidence of interatrial shunt. Aortic Valve The aortic valve is mildly thickened. Trace aortic regurgitation. There is no aortic valvular stenosis. Mitral Valve The mitral valve leaflets are mildly thickened. Trace mitral regurgitation. No evidence of mitral valve stenosis. Tricuspid Valve The tricuspid valve leaflets are thin and pliable. Trace tricuspid regurgitation. There is insufficient TR jet to estimate RVSP. Pulmonic Valve The pulmonary valve is normal in structure. Trace pulmonic regurgitation. Great Vessels The aortic root is normal in size. The ascending aorta is not well-visualized. IVC is normal in size and collapses >50% with inspiration. Pericardium There is no pericardial effusion. Other Information Study Quality: Technically Difficult Conclusion Technically difficult study due to poor acoustic windows. Normal LV systolic function. RV not well-visualized, but grossly appears mildly to moderately dilated with mild reduction in RV function. No significant valvular stenosis or regurgitation. No Doppler evidence of interatrial shunt. Agitated saline administration (bubble study) demonstrates no evidence of interatrial shunt. Electronically signed by : Wendy Bowser MD 12/11/2023 00:29:33
== END 2023-12-07 23:59 | disposition home or self-care (01) ==
LOC: RT 07:43
PROVIDERS: PCP Physician Assistant; Visit Provider Physician Assistant
DX: I51.7 Cardiomegaly (principal); R06.09 Other forms of dyspnea
CPT/HCPCS: 93306

== ENCOUNTER 2024-01-03 11:26 | Outpatient (CLI) | payer MEDICARE, SELFPAY ==
--- NOTE | 2024-01-03 11:30 | XR_ITS ---
PROCEDURE INFORMATION: Exam: XR Chest Exam date and time: 01/03/2024 11:32 AM Age: 63 years old Clinical indication: Dyspnea TECHNIQUE: Imaging protocol: Radiologic exam of the chest. Views: 2 views. COMPARISON: CR XR CHEST 2V 07/06/2020 1:45 PM FINDINGS: Lungs: Mild patchy opacities in the right lung base likely represent atelectasis or infection. Pleural spaces: Unremarkable. No pleural effusion. No pneumothorax. Heart/Mediastinum: Unremarkable. No cardiomegaly. Bones/joints: Unremarkable. IMPRESSION: Mild patchy opacities in the right lung base likely represent atelectasis or infection.
== END 2024-01-03 23:59 | disposition home or self-care (01) ==
LOC: RAD 11:28
PROVIDERS: PCP Family Medicine; Visit Provider Internal Medicine
DX: R06.00 Dyspnea, unspecified (principal); I10 Essential (primary) hypertension; R07.9 Chest pain, unspecified
CPT/HCPCS: 71046

== ENCOUNTER 2024-01-11 10:53 | Outpatient (CLI) | payer MEDICARE, SELFPAY ==
[2024-01-11 11:40] LABS: Anion Gap 10.2 mEq/L (5-15); Blood Urea Nitrogen 21 mg/dl (9-20); Calcium 8.8 mg/dl (8.4-10.2); Carbon Dioxide 27 mmol/L (22.0-30.0); Chloride 105 mmol/L (98-107); Estimated Glomerular Filt Rate 68 ml/min (>60); GFR (African American) 82 ML/MIN (>60); Glucose 122 mg/dl (74-100); Potassium 4.2 mmoL/L (3.5-5.1); Sodium 138 mmol/L (136-145)
[2024-01-11 11:50] LABS: NT Pro Brain Natriuretic Pep. < 20.0 pg/mL (0-125)
== END 2024-01-11 23:59 | disposition home or self-care (01) ==
LOC: LAB 10:56
PROVIDERS: PCP Family Medicine; Visit Provider Physician Assistant
DX: R06.00 Dyspnea, unspecified (principal); I10 Essential (primary) hypertension; E78.2 Mixed hyperlipidemia; R07.9 Chest pain, unspecified
CPT/HCPCS: 36415; 80048; 83880

== ENCOUNTER 2024-01-23 07:42 | Outpatient (CLI) | payer MEDICARE, SELFPAY ==
--- NOTE | 2024-01-23 07:43 | CT_ITS ---
FINAL REPORT TECHNIQUE: The patient was injected with IV contrast. Axial images were obtained of the chest by computed tomography. Precontrast images were also obtained. This study was performed with techniques to keep radiation doses as low as reasonably achievable (ALARA). Individualized dose reduction techniques using automated exposure control or adjustment of mA and/or kV according to the patient's size were employed. CLINICAL HISTORY: abnormal chest X-ray COMPARISON: None FINDINGS: CT OF THE CHEST WITH AND WITHOUT CONTRAST: On the preinfusion images, calcified lymph nodes are noted in the right paratracheal and subcarinal region. There is no axillary adenopathy. There is no mediastinal or hilar adenopathy. Heart size is normal. The mediastinal vasculature is adequately opacified. There is no pericardial or pleural effusion identified. There is no suspicious pulmonary nodule or infiltrate identified. Limited images of the upper abdomen demonstrate fatty infiltration of the liver. IMPRESSION: Fatty liver. Follow-up granulomatous disease. Reviewed, Interpreted and Dictated by Mau Ibarra MD Transcribed by Natali Chapa Authenticated and [facility]
[2024-01-23] MEDS: SODIUM CHLORIDE 0.9% 10ML SYR (RAD ONLY) 10 ML IV (08:23)
[2024-01-23] MEDS: IOPAMIDOL-370 (76%);100ML BOTTLE 75 ML IV (08:23)
== END 2024-01-23 23:59 | disposition home or self-care (01) ==
LOC: RAD 07:43
PROVIDERS: PCP Family Medicine; Visit Provider Physician Assistant
DX: R06.00 Dyspnea, unspecified (principal); R93.89 Abnormal findings on diagnostic imaging of other specified body structures
CPT/HCPCS: 71270; Q9967